=== PATIENT | male | born 1945 | race Caucasian/White ===

== ENCOUNTER 2017-09-15 05:10 | Observation (INO) ==
[2017-09-15] MEDS ORDERED: DIPH/TET/ACEL PERT BOOSTER VACCINE 0.5 ML VIAL IM ONE ×2 (05:25→05:43)
[2017-09-15] MEDS ORDERED: MORPHINE 2 MG/1 ML SYRINGE IV STA (05:25)
[2017-09-15] MEDS ORDERED: ONDANSETRON 4 MG/2 ML VIAL IV STA (05:26)
[2017-09-15] MEDS: ALBUTEROL 2.5 MG/3 ML NEB RESP TX SCH ×2 (05:30→05:50)
[2017-09-15] MEDS ORDERED: ONDANSETRON 4 MG/2 ML VIAL ONE (05:42)
[2017-09-15 05:43] LABS: Basophils # 0.1 10*3/uL (0.0-0.2); Basophils % 1.8 % (0.0-0.8); Eosinophils # 0.2 10*3/uL (0.0-0.87); Eosinophils % 4.4 % (0.00-10.9); Hemoglobin 12.2 GM/DL (14.0-18.0); Immature Granulocytes % 0.2 %; Immature Granulocytes Absolute 0.01 #; Lymphocytes # 1.6 10*3/uL (1.4-4.0); Lymphocytes % 36.2 % (21.2-54.2); Mean Corpuscular HGB Conc 32.1 GM/DL (32-36); Mean Corpuscular Hemoglobin 28 PG (27-34); Mean Platelet Volume 11.4 FL (9.6-12.0); Monocytes # 0.4 10*3/uL (0.11-0.8); Monocytes % 9.3 % (1.7-12.7); Neutrophils # 2.2 10*3/uL (1.4-7.4); Neutrophils % 48.1 % (38.7-73.9); Platelet Count 174 T/CUMM (130-400); Red Blood Count 4.42 MC/CUMM (3.8-5.5); Red Cell Distribution Width 14.9 % (9.3-17.3); White Blood Count 4.5 T/CUMM (4-12)
[2017-09-15] MEDS ORDERED: MORPHINE 2 MG/1 ML SYRINGE ONE ×2 (05:43)
[2017-09-15 05:58] LABS: Allen Test Positive
[2017-09-15 06:01] LABS: ABG Base Excess 4.9 MMOL/L (-2.5-2.5); ABG Oxygen Saturation 98.1 % (95-100); ABG PCO2 46.6 MM HG (35-48); ABG PH 7.427 (7.35-7.45); ABG PO2 111.5 MM HG (80-95); ABG TCO2 31.5 MMOL/L (23-27)
[2017-09-15 06:11] LABS: Albumin 3.6 G/DL (3.4-5.0); Bilirubin,Total 0.4 MG/DL (0.2-1.0); Calcium 8.7 MG/DL (8.5-10.1); Osmolality,Calculated 275.4 MOS/KG (273-304); Potassium 2.8 MMOL/L (3.5-5.1); Total Protein 7.1 G/DL (6.4-8.3)
[2017-09-15] MEDS ORDERED: ALBUTEROL 2.5 MG/3 ML NEB RESP TX STA (06:30)
[2017-09-15] MEDS ORDERED: SODIUM CHLORIDE 0.9% 1,000 ML IV STA (06:30)
[2017-09-15] MEDS ORDERED: POTASSIUM CHLORIDE 20 MEQ TABLET PO STA (06:31)
[2017-09-15] MEDS ORDERED: POTASSIUM CHLORIDE 20 MEQ TABLET PO ONE (06:35)
[2017-09-15] MEDS ORDERED: ALBUTEROL 2.5 MG/3 ML NEB RESP TX ONE (06:41)
[2017-09-15] MEDS ORDERED: SILVER SULFADIAZINE 1% CREAM 25 GM TUBE TOP ONE (07:02)
[2017-09-15] MEDS ORDERED: ACETAMINOPHEN 325 MG TABLET PO PRN (09:03)
[2017-09-15] MEDS ORDERED: ONDANSETRON 4 MG/2 ML VIAL IV PRN (09:03)
[2017-09-15] MEDS ORDERED: INFLUENZA VIRUS VACCINE 0.5 ML SYRINGE IM ONE (10:08)
[2017-09-15] MEDS: BECLOMETHASONE 80 MCG/PUFF INHALER 8.7 GM INH SCH ×2 (11:49→22:16)
[2017-09-15] MEDS: LACTATED RINGERS 1,000 ML IV SCH ×2 (11:58→19:35)
[2017-09-15] MEDS: PANTOPRAZOLE 40 MG TABLET PO SCH (12:01)
[2017-09-15] MEDS ORDERED: ALBUTEROL/IPRATROPIUM 3 ML NEB RESP TX PRN (12:08)
[2017-09-15] MEDS ORDERED: ALBUTEROL 2.5 MG/3 ML NEB RESP TX PRN (12:30)
[2017-09-15] MEDS: POTASSIUM CHLORIDE RIDER 10 MEQ in PREMIX 1 EACH IV PRN ×5 (13:13→21:33)
[2017-09-15 16:48] LABS: Barbiturates Screen,Urine Negative (Negative); Benzodiazepines Screen,Urine Negative (Negative); Cannabinoid Screen,Urine Negative (Negative); Opiate Screen,Urine Positive (Negative); Phencyclidine Screen,Urine Negative (Negative)
[2017-09-16] MEDS: LACTATED RINGERS 1,000 ML IV SCH (04:19)
[2017-09-16 05:42] LABS: Calcium 7.9 MG/DL (8.5-10.1); Osmolality,Calculated 277.3 MOS/KG (273-304); Potassium 3.8 MMOL/L (3.5-5.1)
[2017-09-16 08:25] VITALS: BP 137/89
[2017-09-16] MEDS ORDERED: SILVER SULFADIAZINE 1% CREAM 25 GM TUBE TOP SCH (09:00)
[2017-09-16] MEDS: BECLOMETHASONE 80 MCG/PUFF INHALER 8.7 GM INH SCH (09:29)
[2017-09-16] MEDS: PANTOPRAZOLE 40 MG TABLET PO SCH (09:50)
== END 2017-09-16 11:45 | disposition home or self-care (01) ==
LOC: EDUNIT# → EDBD → N.EDINP 05:10 → N.ED 05:10 → SUATTDRO 06:36 → N.3E 06:46
PROVIDERS: ADMIT Surgery

== ENCOUNTER 2017-09-25 15:20 | Inpatient (IN) ==
[2017-09-25] MEDS ORDERED: SODIUM CHLORIDE 0.9% 1,000 ML IV STA ×2 (16:32→17:40)
[2017-09-25] MEDS ORDERED: ONDANSETRON ODT 4 MG TABLET PO STA (16:32)
[2017-09-25] MEDS ORDERED: METOCLOPRAMIDE 10 MG/2 ML VIAL IV STA (16:32)
[2017-09-25] MEDS ORDERED: LOPERAMIDE 2 MG CAPSULE PO STA (16:32)
[2017-09-25] MEDS ORDERED: ALBUTEROL/IPRATROPIUM 3 ML NEB RESP TX STA (16:41)
[2017-09-25 17:13] LABS: Basophils # 0.1 10*3/uL (0.0-0.2); Basophils % 0.5 % (0.0-0.8); Hematocrit 37.6 VOL% (42.0-52.0); Hemoglobin 12.3 GM/DL (14.0-18.0); Immature Granulocytes % 0.4 %; Immature Granulocytes Absolute 0.06 #; Lymphocytes # 1.3 10*3/uL (1.4-4.0); Mean Corpuscular HGB Conc 32.7 GM/DL (32-36); Mean Corpuscular Hemoglobin 27 PG (27-34); Mean Corpuscular Volume 83.6 FL (87-102); Mean Platelet Volume 11.1 FL (9.6-12.0); Monocytes % 6.1 % (1.7-12.7); Platelet Count 206 T/CUMM (130-400); Red Cell Distribution Width 14.7 % (9.3-17.3); White Blood Count 16.5 T/CUMM (4-12)
[2017-09-25 17:31] LABS: Albumin 3.5 G/DL (3.4-5.0); Bilirubin,Total 0.9 MG/DL (0.2-1.0); Calcium 8.6 MG/DL (8.5-10.1); Osmolality,Calculated 270.7 MOS/KG (273-304); Potassium 3.5 MMOL/L (3.5-5.1); Total Protein 7.5 G/DL (6.4-8.3)
[2017-09-25 17:34] LABS: Lactic Acid 3.5 MMOL/L (0.4-2.0)
[2017-09-25] MEDS ORDERED: LEVOFLOXACIN INJ 750 MG in PREMIX 1 EACH IV STA (17:39)
[2017-09-25] MEDS ORDERED: ONDANSETRON ODT 4 MG TABLET PO ONE (17:54)
[2017-09-25] MEDS ORDERED: METOCLOPRAMIDE 10 MG/2 ML VIAL ONE (17:54)
[2017-09-25] MEDS ORDERED: LEVOFLOXACIN INJ 150 ML IV ONE (17:54)
[2017-09-25] MEDS ORDERED: LOPERAMIDE 2 MG CAPSULE ONE (17:54)
[2017-09-25 19:11] LABS: Apearance,Urine CLEAR (Clear); Bacteria,Urine Occasional /HPF (Few); Bilirubin,Urine Negative (Negative); Blood, Urine Small mg/dL (Negative); Glucose,Urine (UA) Negative (Negative); Ketones,Urine Negative (Negative); Nitrite,Urine Negative (Negative); Protein,Urine Negative; RBC,Urine 1 /HPF (0-4); Urine Color Straw (Yellow); Urine Specific Gravity 1.002 (1.001-1.035); Urine Urobilinogen < 2.0 EU/DL (0.2-1.0); WBC,Urine 11 /HPF (0-6)
[2017-09-25] MEDS ORDERED: ONDANSETRON 4 MG/2 ML VIAL IV PRN (23:42)
[2017-09-25] MEDS ORDERED: ACETAMINOPHEN 325 MG TABLET PO PRN (23:42)
[2017-09-26] MEDS: ENOXAPARIN 40 MG/0.4 ML SYRINGE SUBCUT SCH (00:35)
[2017-09-26] MEDS: SODIUM CHLORIDE 0.9% 1,000 ML IV SCH ×2 (00:36→17:23)
[2017-09-26 05:50] LABS: Basophils % 0.3 % (0.0-0.8); Eosinophils % 0.3 % (0.00-10.9); Hemoglobin 11.4 GM/DL (14.0-18.0); Immature Granulocytes % 0.6 %; Immature Granulocytes Absolute 0.07 #; Lymphocytes # 1.1 10*3/uL (1.4-4.0); Lymphocytes % 9.4 % (21.2-54.2); Mean Corpuscular HGB Conc 32.6 GM/DL (32-36); Mean Corpuscular Hemoglobin 28 PG (27-34); Mean Corpuscular Volume 84.3 FL (87-102); Mean Platelet Volume 11.3 FL (9.6-12.0); Monocytes # 0.8 10*3/uL (0.11-0.8); Monocytes % 7.1 % (1.7-12.7); Neutrophils # 9.5 10*3/uL (1.4-7.4); Neutrophils % 82.3 % (38.7-73.9); Platelet Count 185 T/CUMM (130-400); Red Blood Count 4.15 MC/CUMM (3.8-5.5); Red Cell Distribution Width 14.6 % (9.3-17.3); White Blood Count 11.5 T/CUMM (4-12)
[2017-09-26 06:08] LABS: Calcium 7.7 MG/DL (8.5-10.1); Magnesium 2.2 MG/DL (1.8-2.4); Osmolality,Calculated 275.5 MOS/KG (273-304); Potassium 3.6 MMOL/L (3.5-5.1)
[2017-09-26] MEDS ORDERED: ZINC OXIDE PASTE 113 GM TUBE TOP PRN (08:36)
[2017-09-26] MEDS ORDERED: cefTRIAXone 1,000 MG in SYRINGE 1 EACH IV ONE (08:49)
[2017-09-26] MEDS ORDERED: LORazepam 2 MG/1 ML VIAL IV PRN (09:43)
[2017-09-26] MEDS: LEVOFLOXACIN INJ 500 MG in PREMIX 1 EACH IV SCH (10:14)
[2017-09-26] MEDS: THIAMINE INJ 100 MG, FOLIC ACID INJ 1 MG, MULTIVITAMIN INJ 10 ML in SODIUM CHLORIDE 0.9... IV SCH (16:27)
[2017-09-26] MEDS: chlordiazePOXIDE 10 MG CAPSULE PO SCH ×2 (16:27→21:01)
[2017-09-26] MEDS ORDERED: PROPOFOL 200 MG/20 ML VIAL IV ONE (17:29)
[2017-09-26] MEDS ORDERED: MIDAZOLAM 2 MG/2 ML VIAL ONE (17:29)
[2017-09-26] MEDS ORDERED: fentaNYL 100 MCG/2 ML VIAL ONE (17:30)
[2017-09-26] MEDS ORDERED: SODIUM CHLORIDE 0.9% 250 ML IV ONE (17:30)
[2017-09-26] MEDS: cefTRIAXone 1,000 MG in SYRINGE 1 EACH IV SCH (18:20)
[2017-09-26] MEDS: ALBUTEROL/IPRATROPIUM 3 ML NEB RESP TX SCH (19:57)
[2017-09-27] MEDS: ENOXAPARIN 40 MG/0.4 ML SYRINGE SUBCUT SCH (02:26)
[2017-09-27] MEDS: SODIUM CHLORIDE 0.9% 1,000 ML IV SCH ×3 (02:31→17:41)
[2017-09-27] MEDS: ALBUTEROL/IPRATROPIUM 3 ML NEB RESP TX SCH ×2 (07:07→13:22)
[2017-09-27] MEDS ORDERED: ALBUTEROL 2.5 MG/3 ML NEB RESP TX ONE (08:43)
[2017-09-27] MEDS ORDERED: methylPREDNISolone SOD SUC 125 MG/2 ML VIAL IV ONE (08:46)
[2017-09-27] MEDS: chlordiazePOXIDE 10 MG CAPSULE PO SCH ×2 (08:52→15:43)
[2017-09-27] MEDS: LEVOFLOXACIN INJ 500 MG in PREMIX 1 EACH IV SCH (08:52)
[2017-09-27] MEDS: THIAMINE INJ 100 MG, FOLIC ACID INJ 1 MG, MULTIVITAMIN INJ 10 ML in SODIUM CHLORIDE 0.9... IV SCH (11:33)
[2017-09-27 16:09] VITALS: BP 119/68
[2017-09-27] MEDS: cefTRIAXone 1,000 MG in SYRINGE 1 EACH IV SCH (17:41)
== END 2017-09-27 18:18 | disposition home health service (06) | DRG 693 ==
LOC: EDUNIT# → EDBD → N.ED 15:20 → SUATTDRO 20:44 → N.EDINP 20:44 → N.5E 23:42
PROVIDERS: ADMIT Internal Medicine; ATTEND Internal Medicine

== ENCOUNTER 2018-10-31 19:26 | Inpatient (IN) ==
[2018-10-31] MEDS ORDERED: ALBUTEROL/IPRATROPIUM 3 ML NEB RESP TX STA (19:31)
[2018-10-31] MEDS ORDERED: methylPREDNISolone SOD SUC 125 MG/2 ML VIAL IV STA (19:31)
[2018-10-31] MEDS: ALBUTEROL 2.5 MG/3 ML NEB RESP TX SCH ×3 (20:01→20:40)
[2018-10-31 20:13] LABS: Hematocrit 42.3 VOL% (42.0-52.0); Hemoglobin 13.1 GM/DL (14.0-18.0); Immature Granulocytes % 0.6 %; Immature Granulocytes Absolute 0.04 #; Lymphocytes # 0.7 10*3/uL (1.4-4.0); Lymphocytes % 9.6 % (21.2-54.2); Mean Corpuscular Hemoglobin 27 PG (27-34); Mean Corpuscular Volume 85.8 FL (87-102); Mean Platelet Volume 11.4 FL (9.6-12.0); Monocytes # 0.6 10*3/uL (0.11-0.8); Monocytes % 7.7 % (1.7-12.7); Neutrophils % 82.1 % (38.7-73.9); Platelet Count 127 T/CUMM (130-400); Red Blood Count 4.93 MC/CUMM (3.8-5.5); Red Cell Distribution Width 13.8 % (9.3-17.3); White Blood Count 7.3 T/CUMM (4-12)
[2018-10-31 20:36] LABS: Albumin 3.4 G/DL (3.4-5.0); Bilirubin,Total 0.5 MG/DL (0.2-1.0); Calcium 8.5 MG/DL (8.5-10.1); Osmolality,Calculated 270.2 MOS/KG (273-304); Potassium 3.5 MMOL/L (3.5-5.1); Total Protein 7.4 G/DL (6.4-8.3)
[2018-10-31] MEDS ORDERED: SODIUM CHLORIDE 0.9% 1,000 ML IV STA (20:52)
[2018-10-31 21:14] LABS: ABG Base Excess 6.2 MMOL/L (-2.5-2.5); ABG HCO3 30.1 MMOL/L (20-26); ABG Oxygen Saturation 99.6 % (95-100); ABG PCO2 59.9 MM HG (35-48); ABG PH 7.361 (7.35-7.45); ABG TCO2 29.5 MMOL/L (23-27); Allen Test Positive
[2018-10-31] MEDS ORDERED: BISACODYL 5 MG TABLET PO PRN (23:36)
[2018-10-31] MEDS ORDERED: ONDANSETRON 4 MG/2 ML VIAL IV PRN (23:36)
[2018-10-31] MEDS ORDERED: ACETAMINOPHEN 325 MG TABLET PO PRN (23:36)
[2018-10-31] MEDS ORDERED: ALBUTEROL 2.5 MG/3 ML NEB RESP TX PRN (23:36)
[2018-11-01] MEDS: ALBUTEROL/IPRATROPIUM 3 ML NEB RESP TX SCH ×4 (00:43→20:29)
[2018-11-01] MEDS: CEFEPIME 1,000 MG in SYRINGE 1 EACH IV SCH ×3 (01:41→23:46)
[2018-11-01] MEDS: methylPREDNISolone SOD SUC 40 MG/1 ML VIAL IV SCH ×4 (01:41→23:44)
[2018-11-01 05:56] LABS: Basophils % 0.2 % (0.0-0.8); Eosinophils % 0.2 % (0.00-10.9); Hemoglobin 12.7 GM/DL (14.0-18.0); Immature Granulocytes % 0.7 %; Immature Granulocytes Absolute 0.04 #; Lymphocytes # 0.5 10*3/uL (1.4-4.0); Lymphocytes % 8.3 % (21.2-54.2); Mean Corpuscular Hemoglobin 27 PG (27-34); Mean Corpuscular Volume 85.4 FL (87-102); Monocytes # 0.4 10*3/uL (0.11-0.8); Monocytes % 6.2 % (1.7-12.7); Neutrophils # 4.8 10*3/uL (1.4-7.4); Neutrophils % 84.4 % (38.7-73.9); Platelet Count 121 T/CUMM (130-400); White Blood Count 5.7 T/CUMM (4-12)
[2018-11-01 06:04] LABS: Calcium 8.4 MG/DL (8.5-10.1); Osmolality,Calculated 269.2 MOS/KG (273-304); Potassium 3.8 MMOL/L (3.5-5.1)
[2018-11-01] MEDS ORDERED: PANTOPRAZOLE 40 MG TABLET PO SCH (09:00)
[2018-11-01] MEDS: PANTOPRAZOLE 40 MG TABLET PO SCH (10:18)
[2018-11-01] MEDS: ENOXAPARIN 40 MG/0.4 ML SYRINGE SUBCUT SCH (10:18)
[2018-11-01] MEDS ORDERED: LORazepam 1 MG TABLET PO PRN (11:28)
[2018-11-01] MEDS: LORazepam 1 MG TABLET PO SCH ×2 (12:59→20:37)
[2018-11-02] MEDS: ALBUTEROL/IPRATROPIUM 3 ML NEB RESP TX SCH ×3 (01:13→14:25)
[2018-11-02 04:49] LABS: Hematocrit 41.1 VOL% (42.0-52.0); Hemoglobin 12.9 GM/DL (14.0-18.0); Immature Granulocytes % 0.5 %; Immature Granulocytes Absolute 0.02 #; Lymphocytes # 0.7 10*3/uL (1.4-4.0); Lymphocytes % 15.8 % (21.2-54.2); Mean Corpuscular HGB Conc 31.4 GM/DL (32-36); Mean Corpuscular Hemoglobin 27 PG (27-34); Mean Corpuscular Volume 85.3 FL (87-102); Mean Platelet Volume 12.4 FL (9.6-12.0); Monocytes # 0.3 10*3/uL (0.11-0.8); Monocytes % 7.1 % (1.7-12.7); Neutrophils # 3.2 10*3/uL (1.4-7.4); Neutrophils % 76.6 % (38.7-73.9); Platelet Count 126 T/CUMM (130-400); Red Blood Count 4.82 MC/CUMM (3.8-5.5); Red Cell Distribution Width 13.9 % (9.3-17.3); White Blood Count 4.1 T/CUMM (4-12)
[2018-11-02 05:13] LABS: Calcium 8.6 MG/DL (8.5-10.1); Osmolality,Calculated 272.1 MOS/KG (273-304)
[2018-11-02 05:19] LABS: Lymphocytes 20 % (20-55); Platelet Estimate Decreased; Polychromasia Few; Segmented Neutrophils 79 % (50-85); Total Cells Counted 100
[2018-11-02] MEDS: PANTOPRAZOLE 40 MG TABLET PO SCH (08:15)
[2018-11-02] MEDS: ENOXAPARIN 40 MG/0.4 ML SYRINGE SUBCUT SCH (08:15)
[2018-11-02] MEDS: methylPREDNISolone SOD SUC 40 MG/1 ML VIAL IV SCH ×2 (08:15→16:41)
[2018-11-02] MEDS: LORazepam 1 MG TABLET PO SCH (08:16)
[2018-11-02] MEDS: CEFEPIME 1,000 MG in SYRINGE 1 EACH IV SCH (11:12)
[2018-11-02 12:14] VITALS: BP 116/73
== END 2018-11-02 16:53 | disposition home health service (06) | DRG 189 ==
LOC: EDBD → EDUNIT# → N.ED 19:26 → SUATTDRO 21:37 → N.ICU 21:37 → N.4E 11-01 19:38
PROVIDERS: ADMIT Internal Medicine; ATTEND Internal Medicine

== ENCOUNTER 2019-02-28 00:13 | Inpatient (IN) ==
[2019-02-28] MEDS ORDERED: ALBUTEROL/IPRATROPIUM 3 ML NEB RESP TX STA (00:17)
[2019-02-28] MEDS ORDERED: methylPREDNISolone SOD SUC 125 MG/2 ML VIAL IV STA (00:17)
[2019-02-28] MEDS ORDERED: SODIUM CHLORIDE 0.9% 100 ML IV ONE (01:18)
[2019-02-28] MEDS ORDERED: cefTRIAXone 1,000 MG VIAL ONE (01:18)
[2019-02-28] MEDS ORDERED: ACETAMINOPHEN 325 MG TABLET ONE (03:21)
[2019-02-28 03:24] LABS: Albumin 3.3 G/DL (3.4-5.0); Bilirubin,Total 0.4 MG/DL (0.2-1.0); Calcium 8.4 MG/DL (8.5-10.1); Osmolality,Calculated 277.5 MOS/KG (273-304); Total Protein 7.1 G/DL (6.4-8.3)
[2019-02-28] MEDS ORDERED: ALBUTEROL 2.5 MG/3 ML NEB RESP TX PRN (04:54)
[2019-02-28] MEDS ORDERED: DOCUSATE SODIUM 100 MG CAPSULE PO PRN (05:00)
[2019-02-28] MEDS ORDERED: ONDANSETRON 4 MG/2 ML VIAL IV PRN (05:00)
[2019-02-28 05:10] LABS: Basophils % 0.1 % (0.0-0.8); Hematocrit 40.1 VOL% (42.0-52.0); Hemoglobin 12.3 GM/DL (14.0-18.0); Immature Granulocytes % 0.3 %; Immature Granulocytes Absolute 0.04 #; Lymphocytes # 0.4 10*3/uL (1.4-4.0); Lymphocytes % 3.5 % (21.2-54.2); Mean Corpuscular HGB Conc 30.7 GM/DL (32-36); Mean Corpuscular Volume 89.1 FL (87-102); Mean Platelet Volume 11.6 FL (9.6-12.0); Neutrophils % 87.1 % (38.7-73.9); Platelet Count 169 T/CUMM (130-400); Red Cell Distribution Width 13.8 % (9.3-17.3); White Blood Count 12.3 T/CUMM (4-12)
[2019-02-28] MEDS ORDERED: MAGNESIUM SULF RIDER 2 GM in PREMIX 1 EACH IV PRN (05:23)
[2019-02-28] MEDS ORDERED: MAGNESIUM SULF RIDER 4 GM in PREMIX 1 EACH IV PRN (05:23)
[2019-02-28 06:12] LABS: VBG Base Excess -11.7 MEQ/L (0-4); VBG HCO3 14.9 MEQ/L (24-28); VBG PCO2 14.6 MMHG (41-51); VBG PH 7.501
[2019-02-28 06:25] LABS: Lymphocytes 5 % (20-55); Platelet Estimate Normal; Segmented Neutrophils 86 % (50-85); Total Cells Counted 100
[2019-02-28] MEDS ORDERED: POTASSIUM CHLORIDE 20 MEQ TABLET PO ONE (06:53)
[2019-02-28] MEDS: AZITHROMYCIN INJ 500 MG in SODIUM CHLORIDE 0.9% 250 ML IV SCH (06:54)
[2019-02-28] MEDS: ALBUTEROL/IPRATROPIUM 3 ML NEB RESP TX SCH ×3 (07:57→19:03)
[2019-02-28] MEDS: POTASSIUM CHLORIDE 20 MEQ TABLET PO PRN ×4 (08:56→16:30)
[2019-02-28] MEDS: ENOXAPARIN 40 MG/0.4 ML SYRINGE SUBCUT SCH (08:56)
[2019-02-28] MEDS ORDERED: NON-FORMULARY MEDICATION (Tiotropium Bromide [Spiriva Respimat] 2 PUFF) INH SCH (09:00)
[2019-02-28] MEDS: ACETAMINOPHEN 325 MG TABLET PO PRN (21:21)
[2019-02-28] MEDS: methylPREDNISolone SOD SUC 40 MG/1 ML VIAL IV SCH (21:22)
[2019-03-01] MEDS: ALBUTEROL/IPRATROPIUM 3 ML NEB RESP TX SCH ×4 (01:46→19:27)
[2019-03-01 04:38] LABS: Basophils % 0.2 % (0.0-0.8); Hematocrit 39.9 VOL% (42.0-52.0); Immature Granulocytes % 0.6 %; Immature Granulocytes Absolute 0.04 #; Lymphocytes # 0.3 10*3/uL (1.4-4.0); Mean Corpuscular HGB Conc 30.1 GM/DL (32-36); Mean Corpuscular Volume 90.3 FL (87-102); Mean Platelet Volume 11.8 FL (9.6-12.0); Monocytes % 5.4 % (1.7-12.7); Neutrophils % 88.8 % (38.7-73.9); Platelet Count 175 T/CUMM (130-400); Red Blood Count 4.42 MC/CUMM (3.8-5.5); Red Cell Distribution Width 13.9 % (9.3-17.3); White Blood Count 6.5 T/CUMM (4-12)
[2019-03-01 06:19] LABS: Calcium 8.9 MG/DL (8.5-10.1); Osmolality,Calculated 280.5 MOS/KG (273-304)
[2019-03-01] MEDS: AZITHROMYCIN INJ 500 MG in SODIUM CHLORIDE 0.9% 250 ML IV SCH (08:55)
[2019-03-01] MEDS: ENOXAPARIN 40 MG/0.4 ML SYRINGE SUBCUT SCH (08:56)
[2019-03-01] MEDS: cefTRIAXone 1,000 MG in SYRINGE 1 EACH IV SCH (08:57)
[2019-03-01] MEDS: methylPREDNISolone SOD SUC 40 MG/1 ML VIAL IV SCH ×2 (09:00→20:31)
[2019-03-02] MEDS: ALBUTEROL/IPRATROPIUM 3 ML NEB RESP TX SCH ×4 (00:47→19:06)
[2019-03-02] MEDS: methylPREDNISolone SOD SUC 40 MG/1 ML VIAL IV SCH ×2 (09:23→21:01)
[2019-03-02] MEDS: AZITHROMYCIN INJ 500 MG in SODIUM CHLORIDE 0.9% 250 ML IV SCH (09:23)
[2019-03-02] MEDS: cefTRIAXone 1,000 MG in SYRINGE 1 EACH IV SCH (09:24)
[2019-03-02] MEDS: ENOXAPARIN 40 MG/0.4 ML SYRINGE SUBCUT SCH (09:24)
[2019-03-03] MEDS: ALBUTEROL/IPRATROPIUM 3 ML NEB RESP TX SCH ×4 (01:07→19:35)
[2019-03-03] MEDS: ACETAMINOPHEN 325 MG TABLET PO PRN (04:44)
[2019-03-03] MEDS: AZITHROMYCIN 250 MG TABLET PO SCH (09:30)
[2019-03-03] MEDS: cefTRIAXone 1,000 MG in SYRINGE 1 EACH IV SCH (09:30)
[2019-03-03] MEDS: ENOXAPARIN 40 MG/0.4 ML SYRINGE SUBCUT SCH (09:30)
[2019-03-03] MEDS: methylPREDNISolone SOD SUC 40 MG/1 ML VIAL IV SCH ×2 (09:30→21:22)
[2019-03-04] MEDS: ALBUTEROL/IPRATROPIUM 3 ML NEB RESP TX SCH ×4 (02:47→19:22)
[2019-03-04] MEDS: ENOXAPARIN 40 MG/0.4 ML SYRINGE SUBCUT SCH (09:33)
[2019-03-04] MEDS: AZITHROMYCIN 250 MG TABLET PO SCH (09:33)
[2019-03-04] MEDS: cefTRIAXone 1,000 MG in SYRINGE 1 EACH IV SCH (09:33)
[2019-03-04] MEDS: methylPREDNISolone SOD SUC 40 MG/1 ML VIAL IV SCH ×2 (09:34→20:11)
[2019-03-05] MEDS: ALBUTEROL/IPRATROPIUM 3 ML NEB RESP TX SCH ×4 (01:10→19:00)
[2019-03-05] MEDS: ENOXAPARIN 40 MG/0.4 ML SYRINGE SUBCUT SCH (09:48)
[2019-03-05] MEDS: methylPREDNISolone SOD SUC 40 MG/1 ML VIAL IV SCH ×2 (09:48→20:48)
[2019-03-05] MEDS: cefTRIAXone 1,000 MG in SYRINGE 1 EACH IV SCH (09:49)
[2019-03-05] MEDS: ACETAMINOPHEN 325 MG TABLET PO PRN (09:49)
[2019-03-05 11:14] LABS: Basophils # 0.1 10*3/uL (0.0-0.2); Basophils % 0.3 % (0.0-0.8); Eosinophils # 0.1 10*3/uL (0.0-0.87); Eosinophils % 0.4 % (0.00-10.9); Hematocrit 48.9 VOL% (42.0-52.0); Hemoglobin 14.8 GM/DL (14.0-18.0); Immature Granulocytes % 2.1 %; Immature Granulocytes Absolute 0.43 #; Lymphocytes # 1.7 10*3/uL (1.4-4.0); Lymphocytes % 8.2 % (21.2-54.2); Mean Corpuscular HGB Conc 30.3 GM/DL (32-36); Mean Corpuscular Volume 89.6 FL (87-102); Mean Platelet Volume 11.5 FL (9.6-12.0); Monocytes % 6.5 % (1.7-12.7); Neutrophils % 82.5 % (38.7-73.9); Platelet Count 259 T/CUMM (130-400); Red Blood Count 5.46 MC/CUMM (3.8-5.5); Red Cell Distribution Width 13.8 % (9.3-17.3); White Blood Count 20.8 T/CUMM (4-12)
[2019-03-05 11:18] LABS: Calcium 8.9 MG/DL (8.5-10.1); Osmolality,Calculated 277.7 MOS/KG (273-304)
[2019-03-05 11:21] LABS: Band Neutrophils 3 % (0-10); Lymphocytes 10 % (20-55); Platelet Estimate Normal; Segmented Neutrophils 82 % (50-85); Total Cells Counted 100
[2019-03-05 11:22] LABS: Anisocytosis 1+; Macrocytosis Slight
[2019-03-06] MEDS: ALBUTEROL/IPRATROPIUM 3 ML NEB RESP TX SCH ×3 (00:10→14:30)
[2019-03-06 05:58] LABS: Basophils % 0.3 % (0.0-0.8); Hematocrit 42.3 VOL% (42.0-52.0); Hemoglobin 12.8 GM/DL (14.0-18.0); Immature Granulocytes % 3.1 %; Immature Granulocytes Absolute 0.34 #; Lymphocytes # 0.6 10*3/uL (1.4-4.0); Lymphocytes % 5.7 % (21.2-54.2); Mean Corpuscular HGB Conc 30.3 GM/DL (32-36); Mean Corpuscular Volume 89.2 FL (87-102); Mean Platelet Volume 11.6 FL (9.6-12.0); Monocytes % 5.1 % (1.7-12.7); Neutrophils % 85.8 % (38.7-73.9); Platelet Count 227 T/CUMM (130-400); Red Blood Count 4.74 MC/CUMM (3.8-5.5); Red Cell Distribution Width 13.9 % (9.3-17.3); White Blood Count 11.1 T/CUMM (4-12)
[2019-03-06 06:08] LABS: Calcium 8.9 MG/DL (8.5-10.1); Osmolality,Calculated 276.8 MOS/KG (273-304)
[2019-03-06] MEDS: methylPREDNISolone SOD SUC 40 MG/1 ML VIAL IV SCH (09:11)
[2019-03-06] MEDS: ENOXAPARIN 40 MG/0.4 ML SYRINGE SUBCUT SCH (09:19)
[2019-03-06] MEDS: cefTRIAXone 1,000 MG in SYRINGE 1 EACH IV SCH (09:19)
[2019-03-06 11:48] VITALS: BP 117/82
== END 2019-03-06 15:19 | disposition swing bed (61) | DRG 190 ==
LOC: EDBD → EDUNIT# → N.ED 00:13 → SUATTDRO 04:52 → N.EDINP 04:52 → N.2E 05:40
PROVIDERS: ADMIT Family Medicine; ATTEND Hospitalist

== ENCOUNTER 2019-05-03 19:32 | Observation (INO) ==
[2019-05-03] MEDS ORDERED: DIPH/TET/ACEL PERT BOOSTER VACCINE 0.5 ML VIAL IM ONE (20:55)
[2019-05-03] MEDS ORDERED: THIAMINE INJ 100 MG, FOLIC ACID INJ 1 MG, MAGNESIUM SULF INJ 2 GM, MULTIVITAMIN INJ 10 ... IV STA (20:55)
[2019-05-03] MEDS ORDERED: ALBUTEROL/IPRATROPIUM 3 ML NEB RESP TX STA (21:01)
[2019-05-03] MEDS ORDERED: methylPREDNISolone SOD SUC 125 MG/2 ML VIAL IV STA (21:01)
[2019-05-03 21:16] LABS: Apearance,Urine CLEAR (Clear); Bilirubin,Urine Negative (Negative); Blood, Urine Small mg/dL (Negative); Glucose,Urine (UA) Negative (Negative); Ketones,Urine Negative (Negative); Mucus,Urine Occasional /LPF (Occasional); Nitrite,Urine Negative (Negative); Protein,Urine Negative; RBC,Urine 2 /HPF (0-4); Squamous Epithelial Cell,Urine Occasional /HPF (0-10); Urine Color Straw (Yellow); Urine Specific Gravity 1.005 (1.001-1.035); Urine Urobilinogen < 2.0 EU/DL (0.2-1.0)
[2019-05-03 21:21] LABS: Barbiturates Screen,Urine Negative (Negative); Benzodiazepines Screen,Urine Negative (Negative); Cannabinoid Screen,Urine Negative (Negative); Opiate Screen,Urine Negative (Negative); Phencyclidine Screen,Urine Negative (Negative)
[2019-05-03 21:30] LABS: Alanine Aminotransferase 18 U/L (16-61); Albumin 3.4 G/DL (3.4-5.0); Alkaline Phosphatase 88 U/L (45-117); Aspartate Amino Transferase 17 U/L (0-37); Blood Urea Nitrogen 23 MG/DL (7-18); Calcium 8.8 MG/DL (8.5-10.1); Glucose 88 MG/DL (74-106); Osmolality,Calculated 288.8 MOS/KG (273-304); Total Protein 6.8 G/DL (6.4-8.3)
[2019-05-03 21:37] LABS: Basophils # 0.1 10*3/uL (0.0-0.2); Eosinophils # 0.2 10*3/uL (0.0-0.87); Eosinophils % 3.1 % (0.00-10.9); Hematocrit 37.9 VOL% (42.0-52.0); Hemoglobin 12.1 GM/DL (14.0-18.0); Immature Granulocytes % 0.3 %; Immature Granulocytes Absolute 0.02 #; Lymphocytes # 1.4 10*3/uL (1.4-4.0); Lymphocytes % 24.2 % (21.2-54.2); Mean Corpuscular HGB Conc 31.9 GM/DL (32-36); Mean Corpuscular Volume 95.7 FL (87-102); Mean Platelet Volume 12.1 FL (9.6-12.0); Monocytes % 9.6 % (1.7-12.7); Neutrophils % 61.8 % (38.7-73.9); Platelet Count 228 T/CUMM (130-400); Red Blood Count 3.96 MC/CUMM (3.8-5.5); Red Cell Distribution Width 12.6 % (9.3-17.3); White Blood Count 5.8 T/CUMM (4-12)
[2019-05-03 21:42] LABS: INR 0.9; PT Patient Result 9.8 SECS
[2019-05-03 21:49] LABS: Troponin I < 0.015 NG/ML (0.00-0.045)
[2019-05-03] MEDS ORDERED: cefTRIAXone 1,000 MG in SODIUM CHLORIDE 0.9% 100 ML IV STA (21:58)
[2019-05-03] MEDS ORDERED: TISSUE ADHESIVE 1 EACH APPLICATOR TOP ONE (22:01)
[2019-05-04] MEDS ORDERED: MORPHINE 4 MG/1 ML VIAL IV PRN (00:20)
[2019-05-04] MEDS ORDERED: ONDANSETRON 4 MG/2 ML VIAL IV PRN (00:20)
[2019-05-04] MEDS ORDERED: diphenhydrAMINE CAP 25 MG CAPSULE PO PRN (00:20)
[2019-05-04] MEDS ORDERED: NICOTINE 21 MG/24 HR PATCH TRANSDERM PRN (00:20)
[2019-05-04] MEDS ORDERED: guaiFENesin/DM ER 600-30 MG TABLET PO PRN (00:20)
[2019-05-04] MEDS ORDERED: ACETAMINOPHEN 325 MG TABLET PO PRN (00:20)
[2019-05-04] MEDS: ALBUTEROL/IPRATROPIUM 3 ML NEB RESP TX SCH ×4 (01:00→19:18)
[2019-05-04] MEDS: AZITHROMYCIN INJ 500 MG in SODIUM CHLORIDE 0.9% 250 ML IV SCH (02:25)
[2019-05-04] MEDS: POTASSIUM CHLORIDE 20 MEQ TABLET PO PRN ×2 (02:26→04:35)
[2019-05-04] MEDS: PANTOPRAZOLE 40 MG TABLET PO SCH (09:14)
[2019-05-04] MEDS: cefTRIAXone 1,000 MG in SYRINGE 1 EACH IV SCH ×2 (09:14→21:24)
[2019-05-04] MEDS: chlordiazePOXIDE 25 MG CAPSULE PO PRN ×2 (09:22→15:50)
[2019-05-04] MEDS: SODIUM CHLORIDE 0.9% 1,000 ML IV SCH ×2 (10:58→23:48)
[2019-05-05] MEDS: ALBUTEROL/IPRATROPIUM 3 ML NEB RESP TX SCH ×2 (02:33→07:20)
[2019-05-05] MEDS: AZITHROMYCIN INJ 500 MG in SODIUM CHLORIDE 0.9% 250 ML IV SCH (02:33)
[2019-05-05 05:29] LABS: Basophils % 0.3 % (0.0-0.8); Eosinophils # 0.1 10*3/uL (0.0-0.87); Eosinophils % 0.9 % (0.00-10.9); Hematocrit 35.9 VOL% (42.0-52.0); Hemoglobin 10.9 GM/DL (14.0-18.0); Immature Granulocytes % 0.7 %; Immature Granulocytes Absolute 0.04 #; Lymphocytes # 1.2 10*3/uL (1.4-4.0); Lymphocytes % 20.3 % (21.2-54.2); Mean Corpuscular HGB Conc 30.4 GM/DL (32-36); Mean Corpuscular Volume 86.9 FL (87-102); Mean Platelet Volume 12.2 FL (9.6-12.0); Neutrophils % 70.8 % (38.7-73.9); Platelet Count 104 T/CUMM (130-400); Red Blood Count 4.13 MC/CUMM (3.8-5.5); Red Cell Distribution Width 17.4 % (9.3-17.3); White Blood Count 5.9 T/CUMM (4-12)
[2019-05-05 05:35] LABS: Osmolality,Calculated 282.1 MOS/KG (273-304)
[2019-05-05 08:11] VITALS: BP 104/60
[2019-05-05] MEDS: PANTOPRAZOLE 40 MG TABLET PO SCH (08:58)
[2019-05-05] MEDS: cefTRIAXone 1,000 MG in SYRINGE 1 EACH IV SCH (08:58)
[2019-05-05] MEDS ORDERED: THIAMINE 100 MG TABLET PO SCH (10:30)
[2019-05-05] MEDS ORDERED: FOLIC ACID 1 MG TABLET PO SCH (10:30)
[2019-05-05] MEDS ORDERED: MULTIVITAMIN (CENTRUM) TABLET PO SCH (10:30)
== END 2019-05-05 12:25 | disposition left against medical advice (07) ==
LOC: EDBD → EDUNIT# → N.ED 19:32 → N.EDINP 19:32 → N.5E 05-04 00:46
PROVIDERS: ADMIT Internal Medicine; ATTEND Internal Medicine

== ENCOUNTER 2019-05-15 17:58 | Observation (INO) ==
[2019-05-15] MEDS ORDERED: methylPREDNISolone SOD SUC 125 MG/2 ML VIAL IV STA (18:30)
[2019-05-15] MEDS ORDERED: ALBUTEROL/IPRATROPIUM 3 ML NEB RESP TX STA (18:30)
[2019-05-15] MEDS ORDERED: THIAMINE INJ 100 MG, FOLIC ACID INJ 1 MG, MAGNESIUM SULF INJ 2 GM, MULTIVITAMIN INJ 10 ... IV ONE (18:30)
[2019-05-15 19:08] LABS: Basophils # 0.1 10*3/uL (0.0-0.2); Basophils % 0.9 % (0.0-0.8); Eosinophils # 0.1 10*3/uL (0.0-0.87); Eosinophils % 1.6 % (0.00-10.9); Hemoglobin 12.1 GM/DL (14.0-18.0); Immature Granulocytes % 0.6 %; Immature Granulocytes Absolute 0.04 #; Lymphocytes % 14.6 % (21.2-54.2); Mean Corpuscular HGB Conc 30.3 GM/DL (32-36); Mean Corpuscular Volume 86.8 FL (87-102); Mean Platelet Volume 10.9 FL (9.6-12.0); Monocytes % 9.2 % (1.7-12.7); Neutrophils % 73.1 % (38.7-73.9); Platelet Count 163 T/CUMM (130-400); Red Blood Count 4.61 MC/CUMM (3.8-5.5); Red Cell Distribution Width 17.8 % (9.3-17.3)
[2019-05-15 19:18] LABS: Apearance,Urine CLEAR (Clear); Bilirubin,Urine Negative (Negative); Blood, Urine Small mg/dL (Negative); Glucose,Urine (UA) Negative (Negative); Ketones,Urine Negative (Negative); Nitrite,Urine Negative (Negative); Protein,Urine Negative; RBC,Urine 1 /HPF (0-4); Squamous Epithelial Cell,Urine Occasional /HPF (0-10); Urine Color Colorless (Yellow); Urine Specific Gravity 1.002 (1.001-1.035); Urine Urobilinogen < 2.0 EU/DL (0.2-1.0); WBC,Urine <1 /HPF (0-6)
[2019-05-15 19:19] LABS: INR 0.9
[2019-05-15 19:23] LABS: Barbiturates Screen,Urine Negative (Negative); Benzodiazepines Screen,Urine Negative (Negative); Cannabinoid Screen,Urine Negative (Negative); Opiate Screen,Urine Negative (Negative); Phencyclidine Screen,Urine Negative (Negative)
[2019-05-15 19:33] LABS: Albumin 3.4 G/DL (3.4-5.0); Bilirubin,Total 0.5 MG/DL (0.2-1.0); Osmolality,Calculated 279.3 MOS/KG (273-304); Total Protein 6.9 G/DL (6.4-8.3)
[2019-05-15 20:29] LABS: ABG Base Excess 3.5 MMOL/L (-2.5-2.5); ABG HCO3 27.4 MMOL/L (20-26); ABG Oxygen Saturation 92.7 % (95-100); ABG PCO2 56.2 MM HG (35-48); ABG PH 7.343 (7.35-7.45); ABG PO2 75.1 MM HG (80-95); ABG TCO2 27.5 MMOL/L (23-27); Allen Test Positive
[2019-05-15 20:43] LABS: Sedimentation Rate-Westergren 32 MM/HR (0-20)
[2019-05-15] MEDS ORDERED: ONDANSETRON 4 MG/2 ML VIAL IV PRN (20:52)
[2019-05-15] MEDS ORDERED: LORazepam 0.5 MG TABLET PO PRN (20:58)
[2019-05-15] MEDS ORDERED: ENOXAPARIN 40 MG/0.4 ML SYRINGE SUBCUT SCH (21:00)
[2019-05-15] MEDS: KETOROLAC 15 MG/1 ML VIAL IV SCH (23:02)
[2019-05-15] MEDS: THIAMINE INJ 100 MG in SODIUM CHLORIDE 0.9% 1,000 ML IV SCH (23:09)
[2019-05-15] MEDS: ALBUTEROL/IPRATROPIUM 3 ML NEB RESP TX SCH (23:40)
[2019-05-16] MEDS: ALBUTEROL/IPRATROPIUM 3 ML NEB RESP TX SCH ×3 (03:32→10:56)
[2019-05-16] MEDS: methylPREDNISolone SOD SUC 40 MG/1 ML VIAL IV SCH ×2 (04:02→11:16)
[2019-05-16] MEDS: KETOROLAC 15 MG/1 ML VIAL IV SCH ×2 (04:04→11:17)
[2019-05-16 05:13] LABS: Basophils % 0.4 % (0.0-0.8); Hematocrit 34.8 VOL% (42.0-52.0); Hemoglobin 10.8 GM/DL (14.0-18.0); Immature Granulocytes % 1.2 %; Immature Granulocytes Absolute 0.03 #; Lymphocytes # 0.2 10*3/uL (1.4-4.0); Lymphocytes % 8.9 % (21.2-54.2); Mean Corpuscular Volume 86.4 FL (87-102); Mean Platelet Volume 11.2 FL (9.6-12.0); Monocytes % 0.8 % (1.7-12.7); Neutrophils % 88.7 % (38.7-73.9); Platelet Count 139 T/CUMM (130-400); Red Blood Count 4.03 MC/CUMM (3.8-5.5); Red Cell Distribution Width 17.6 % (9.3-17.3); White Blood Count 2.6 T/CUMM (4-12)
[2019-05-16 05:50] LABS: Calcium 7.6 MG/DL (8.5-10.1); Osmolality,Calculated 285.3 MOS/KG (273-304)
[2019-05-16] MEDS: THIAMINE INJ 100 MG in SODIUM CHLORIDE 0.9% 1,000 ML IV SCH (07:01)
[2019-05-16] MEDS ORDERED: PANTOPRAZOLE 40 MG TABLET PO SCH (09:00)
[2019-05-16] MEDS ORDERED: NON-FORMULARY MEDICATION (Tiotropium Bromide [Spiriva Respimat] 2 PUFF) INH SCH (09:00)
[2019-05-16] MEDS ORDERED: AZITHROMYCIN 250 MG TABLET PO SCH (09:00)
[2019-05-16] MEDS ORDERED: FOLIC ACID 1 MG TABLET PO SCH (09:00)
[2019-05-16] MEDS ORDERED: chlordiazePOXIDE 25 MG CAPSULE PO ONE (09:06)
[2019-05-16] MEDS ORDERED: LORazepam 2 MG/1 ML VIAL IV PRN (09:07)
[2019-05-16 12:25] VITALS: BP 109/71
== END 2019-05-16 15:05 | disposition home or self-care (01) ==
LOC: EDBD → EDUNIT# → N.ED 17:58 → N.EDINP 17:58 → SUPCPDRO 20:52 → N.4E 21:14
PROVIDERS: ADMIT Internal Medicine; ATTEND Internal Medicine

== ENCOUNTER 2020-07-25 09:42 | Inpatient (IN) ==
[2020-07-25] MEDS ORDERED: methylPREDNISolone SOD SUC 125 MG/2 ML VIAL IV STA (10:19)
[2020-07-25] MEDS ORDERED: ALBUTEROL/IPRATROPIUM 3 ML NEB RESP TX STA ×2 (10:19→11:50)
[2020-07-25 10:20] LABS: Basophils % 0.3 % (0.0-0.8); Eosinophils # 0.1 10*3/uL (0.0-0.87); Eosinophils % 0.5 % (0.00-10.9); Hematocrit 35.4 VOL% (42.0-52.0); Hemoglobin 10.6 GM/DL (14.0-18.0); Immature Granulocytes % 0.8 %; Immature Granulocytes Absolute 0.09 #; Lymphocytes # 0.7 10*3/uL (1.4-4.0); Lymphocytes % 6.4 % (21.2-54.2); Mean Corpuscular HGB Conc 29.9 GM/DL (32-36); Mean Corpuscular Volume 93.2 FL (87-102); Mean Platelet Volume 11.2 FL (9.6-12.0); Monocytes % 7.5 % (1.7-12.7); Neutrophils % 84.5 % (38.7-73.9); Platelet Count 158 T/CUMM (130-400); Red Cell Distribution Width 14.7 % (9.3-17.3); White Blood Count 11.6 T/CUMM (4-12)
[2020-07-25] MEDS: ENOXAPARIN 40 MG/0.4 ML SYRINGE SUBCUT SCH (10:42)
[2020-07-25 10:48] LABS: Alanine Aminotransferase 19 U/L (16-61); Albumin 2.8 G/DL (3.4-5.0); Alkaline Phosphatase 53 U/L (45-117); Aspartate Amino Transferase 25 U/L (0-37); Bilirubin,Total < 0.39 MG/DL (0.2-1.0); Blood Urea Nitrogen 17 MG/DL (7-18); Calcium 8.8 MG/DL (8.5-10.1); Estimated Glom Filtration Rate 101 ML/MIN; Glucose 94 MG/DL (74-106); Osmolality,Calculated 280.4 MOS/KG (273-304); Total Protein 6.8 G/DL (6.4-8.3)
[2020-07-25] MEDS ORDERED: PIPERACILLIN/TAZOBACTAM 3,375 MG in SODIUM CHLORIDE 0.9% 100 ML IV STA (11:14)
[2020-07-25] MEDS ORDERED: VANCOMYCIN INJ 1,000 MG in SODIUM CHLORIDE 0.9% 250 ML IV STA (11:15)
[2020-07-25 11:48] LABS: ABG Base Excess 17.3 MMOL/L (-2.5-2.5); ABG HCO3 41.2 MMOL/L (20-26); ABG Oxygen Saturation 92.8 % (95-100); ABG PH 7.364 (7.35-7.45); ABG TCO2 42.6 MMOL/L (23-27)
[2020-07-25 11:50] LABS: ABG PCO2 81.6 MM HG (35-48)
[2020-07-25] MEDS ORDERED: dilTIAZem Drip 125 MG/125 ML PREMIX IV SCH (12:30)
[2020-07-25] MEDS ORDERED: DEXTROSE 50% 25 GM/50 ML VIAL IV PRN ×2 (13:05→13:16)
[2020-07-25] MEDS ORDERED: ACETAMINOPHEN 325 MG TABLET PO PRN (13:16)
[2020-07-25] MEDS ORDERED: ONDANSETRON 4 MG/2 ML VIAL IV PRN (13:16)
[2020-07-25] MEDS ORDERED: ENOXAPARIN 60 MG/0.6 ML SYRINGE SUBCUT SCH (13:30)
[2020-07-25 13:48] LABS: VLDL CHOLESTEROL 8.8 MG/DL
[2020-07-25 13:49] LABS: Risk Ratio 2.06
[2020-07-25 13:55] LABS: Thyroid Stimulating Hormone 1.77 uIU/ml (0.358-3.74)
[2020-07-25] MEDS: ALBUTEROL/IPRATROPIUM 3 ML NEB RESP TX PRN ×2 (14:41→22:18)
[2020-07-25 15:29] LABS: ABG Base Excess 14.5 MMOL/L (-2.5-2.5); ABG HCO3 38.2 MMOL/L (20-26); ABG Oxygen Saturation 92.3 % (95-100); ABG PH 7.333 (7.35-7.45); ABG PO2 68.6 MM HG (80-95); ABG TCO2 40.3 MMOL/L (23-27)
[2020-07-25 15:30] LABS: ABG PCO2 83.1 MM HG (35-48)
[2020-07-25] MEDS ORDERED: LORazepam 1 MG TABLET PO STA (15:32)
[2020-07-25] MEDS: ALBUTEROL/IPRATROPIUM 3 ML NEB RESP TX SCH (19:25)
[2020-07-25] MEDS: PIPERACILLIN/TAZOBACTAM 3,375 MG in SODIUM CHLORIDE 0.9% 100 ML IV SCH (21:50)
[2020-07-26] MEDS: ALBUTEROL/IPRATROPIUM 3 ML NEB RESP TX SCH ×4 (00:37→22:46)
[2020-07-26] MEDS: ALBUTEROL/IPRATROPIUM 3 ML NEB RESP TX PRN (02:41)
[2020-07-26] MEDS: PIPERACILLIN/TAZOBACTAM 3,375 MG in SODIUM CHLORIDE 0.9% 100 ML IV SCH ×3 (05:15→21:18)
[2020-07-26 05:50] LABS: Basophils % 0.3 % (0.0-0.8); Hematocrit 34.1 VOL% (42.0-52.0); Immature Granulocytes Absolute 0.14 #; Lymphocytes # 0.4 10*3/uL (1.4-4.0); Mean Corpuscular HGB Conc 29.3 GM/DL (32-36); Mean Corpuscular Volume 95.3 FL (87-102); Mean Platelet Volume 11.7 FL (9.6-12.0); Monocytes % 6.2 % (1.7-12.7); Neutrophils % 85.5 % (38.7-73.9); Platelet Count 156 T/CUMM (130-400); Red Blood Count 3.58 MC/CUMM (3.8-5.5); Red Cell Distribution Width 14.4 % (9.3-17.3)
[2020-07-26 06:00] LABS: Hypochromasia 1+; Microcytosis 1+; Platelet Estimate Adequate
[2020-07-26 06:06] LABS: Calcium 8.7 MG/DL (8.5-10.1); Osmolality,Calculated 276.7 MOS/KG (273-304)
[2020-07-26] MEDS: methylPREDNISolone SOD SUC 40 MG/1 ML VIAL IV SCH ×2 (09:51→17:05)
[2020-07-26] MEDS: PANTOPRAZOLE 40 MG TABLET PO SCH (09:51)
[2020-07-26] MEDS: FUROSEMIDE 40 MG/4 ML VIAL IV SCH (11:09)
[2020-07-26] MEDS: METOPROLOL SUCCINATE XL 25 MG TABLET PO SCH (12:21)
[2020-07-26] MEDS: ENOXAPARIN 40 MG/0.4 ML SYRINGE SUBCUT SCH (12:36)
[2020-07-27] MEDS: methylPREDNISolone SOD SUC 40 MG/1 ML VIAL IV SCH ×3 (01:07→17:34)
[2020-07-27] MEDS: ALBUTEROL/IPRATROPIUM 3 ML NEB RESP TX SCH ×4 (02:24→19:07)
[2020-07-27] MEDS: PIPERACILLIN/TAZOBACTAM 3,375 MG in SODIUM CHLORIDE 0.9% 100 ML IV SCH ×3 (05:20→21:08)
[2020-07-27 06:03] LABS: Blood Urea Nitrogen 21 MG/DL (7-18); Calcium 9.3 MG/DL (8.5-10.1); Estimated Glom Filtration Rate 103 ML/MIN; Glucose 108 MG/DL (74-106); Osmolality,Calculated 278.7 MOS/KG (273-304)
[2020-07-27 06:39] LABS: Basophils % 0.3 % (0.0-0.8); Hematocrit 36.8 VOL% (42.0-52.0); Hemoglobin 10.4 GM/DL (14.0-18.0); Immature Granulocytes % 1.9 %; Immature Granulocytes Absolute 0.11 #; Lymphocytes # 0.5 10*3/uL (1.4-4.0); Mean Corpuscular HGB Conc 28.3 GM/DL (32-36); Mean Corpuscular Volume 96.8 FL (87-102); Mean Platelet Volume 11.4 FL (9.6-12.0); Monocytes % 10.1 % (1.7-12.7); Neutrophils % 79.7 % (38.7-73.9); Platelet Count 172 T/CUMM (130-400); Red Cell Distribution Width 14.3 % (9.3-17.3); White Blood Count 5.7 T/CUMM (4-12)
[2020-07-27 07:07] LABS: Hypochromasia 1+; Microcytosis 1+; Polychromasia Slight
[2020-07-27 07:08] LABS: Platelet Estimate Adequate
[2020-07-27] MEDS: METOPROLOL SUCCINATE XL 25 MG TABLET PO SCH (09:57)
[2020-07-27] MEDS: PANTOPRAZOLE 40 MG TABLET PO SCH (09:57)
[2020-07-27] MEDS: FUROSEMIDE 40 MG/4 ML VIAL IV SCH (11:00)
[2020-07-27] MEDS ORDERED: ALBUTEROL/IPRATROPIUM 3 ML NEB RESP TX ONE (11:16)
[2020-07-27] MEDS ORDERED: AMINOPHYLLINE 250 MG in SODIUM CHLORIDE 0.9% 100 ML IV ONE (12:00)
[2020-07-27] MEDS: dilTIAZem Drip 125 MG/125 ML PREMIX IV SCH (12:35)
[2020-07-27] MEDS: ENOXAPARIN 40 MG/0.4 ML SYRINGE SUBCUT SCH (14:12)
[2020-07-27] MEDS: AMINOPHYLLINE 500 MG in SODIUM CHLORIDE 0.9% 480 ML IV SCH (14:12)
[2020-07-27] MEDS: DORNASE ALFA 2.5 MG/2.5 ML VIAL RESP TX SCH (19:07)
[2020-07-27] MEDS ORDERED: METOPROLOL SUCCINATE XL 25 MG TABLET PO SCH (21:00)
[2020-07-27] MEDS ORDERED: METOPROLOL SUCCINATE XL 50 MG TABLET PO SCH (21:00)
[2020-07-27] MEDS: DILTIAZEM CD 120 MG CAPSULE PO SCH (21:09)
[2020-07-28] MEDS: methylPREDNISolone SOD SUC 40 MG/1 ML VIAL IV SCH ×3 (01:17→17:55)
[2020-07-28] MEDS: ALBUTEROL/IPRATROPIUM 3 ML NEB RESP TX SCH ×4 (01:21→19:52)
[2020-07-28] MEDS: PIPERACILLIN/TAZOBACTAM 3,375 MG in SODIUM CHLORIDE 0.9% 100 ML IV SCH ×3 (04:35→20:50)
[2020-07-28 06:01] LABS: Calcium 9.1 MG/DL (8.5-10.1)
[2020-07-28 06:15] LABS: Basophils % 0.4 % (0.0-0.8); Hematocrit 38.8 VOL% (42.0-52.0); Immature Granulocytes % 2.1 %; Immature Granulocytes Absolute 0.12 #; Lymphocytes # 0.3 10*3/uL (1.4-4.0); Lymphocytes % 4.7 % (21.2-54.2); Mean Corpuscular HGB Conc 29.9 GM/DL (32-36); Mean Corpuscular Volume 91.3 FL (87-102); Mean Platelet Volume 11.7 FL (9.6-12.0); Monocytes % 3.3 % (1.7-12.7); Neutrophils % 89.5 % (38.7-73.9); Platelet Count 188 T/CUMM (130-400); Red Blood Count 4.25 MC/CUMM (3.8-5.5); Red Cell Distribution Width 13.6 % (9.3-17.3); White Blood Count 5.7 T/CUMM (4-12)
[2020-07-28 06:20] LABS: Hemoglobin 11.6 GM/DL (14.0-18.0)
[2020-07-28 06:37] LABS: Lymphocytes 4 % (20-55); Platelet Estimate Normal; Segmented Neutrophils 92 % (50-85); Total Cells Counted 100
[2020-07-28] MEDS: DORNASE ALFA 2.5 MG/2.5 ML VIAL RESP TX SCH ×2 (07:06→20:00)
[2020-07-28 07:08] LABS: Osmolality,Calculated 279.8 MOS/KG (273-304)
[2020-07-28 08:16] LABS: ABG Base Excess 15.1 MMOL/L (-2.5-2.5); ABG HCO3 44.4 MMOL/L (20-26); ABG Oxygen Saturation 97.2 % (95-100); ABG PO2 96.2 MM HG (80-95)
[2020-07-28 08:18] LABS: ABG PCO2 84.2 MM HG (35-48)
[2020-07-28] MEDS: FUROSEMIDE 40 MG/4 ML VIAL IV SCH (09:57)
[2020-07-28] MEDS: PANTOPRAZOLE 40 MG TABLET PO SCH (09:59)
[2020-07-28] MEDS: AMINOPHYLLINE 500 MG in SODIUM CHLORIDE 0.9% 480 ML IV SCH ×2 (10:31→23:27)
[2020-07-28] MEDS: dilTIAZem Drip 125 MG/125 ML PREMIX IV SCH (13:21)
[2020-07-28] MEDS: ENOXAPARIN 40 MG/0.4 ML SYRINGE SUBCUT SCH (13:21)
[2020-07-28] MEDS: DILTIAZEM CD 120 MG CAPSULE PO SCH (20:50)
[2020-07-29] MEDS: methylPREDNISolone SOD SUC 40 MG/1 ML VIAL IV SCH ×3 (00:53→16:41)
[2020-07-29] MEDS: ALBUTEROL/IPRATROPIUM 3 ML NEB RESP TX SCH ×6 (00:58→23:50)
[2020-07-29] MEDS: PIPERACILLIN/TAZOBACTAM 3,375 MG in SODIUM CHLORIDE 0.9% 100 ML IV SCH ×3 (03:47→21:48)
[2020-07-29] MEDS: DORNASE ALFA 2.5 MG/2.5 ML VIAL RESP TX SCH ×2 (08:13→19:14)
[2020-07-29] MEDS: PANTOPRAZOLE 40 MG TABLET PO SCH (09:54)
[2020-07-29] MEDS: FUROSEMIDE 40 MG/4 ML VIAL IV SCH ×2 (10:15→16:37)
[2020-07-29] MEDS ORDERED: FUROSEMIDE 40 MG/4 ML VIAL ONE (14:21)
[2020-07-29] MEDS: ENOXAPARIN 40 MG/0.4 ML SYRINGE SUBCUT SCH (14:42)
[2020-07-29] MEDS ORDERED: METOPROLOL TARTRATE 5 MG/5 ML VIAL IV ONE (15:51)
[2020-07-29] MEDS: AMINOPHYLLINE 500 MG in SODIUM CHLORIDE 0.9% 480 ML IV SCH (20:00)
[2020-07-29] MEDS: DILTIAZEM CD 120 MG CAPSULE PO SCH (21:51)
[2020-07-30] MEDS: methylPREDNISolone SOD SUC 40 MG/1 ML VIAL IV SCH ×2 (00:54→08:04)
[2020-07-30] MEDS: ALBUTEROL/IPRATROPIUM 3 ML NEB RESP TX SCH ×5 (03:29→19:34)
[2020-07-30] MEDS: PIPERACILLIN/TAZOBACTAM 3,375 MG in SODIUM CHLORIDE 0.9% 100 ML IV SCH (04:36)
[2020-07-30 04:44] LABS: Basophils % 0.2 % (0.0-0.8); Hematocrit 41.2 VOL% (42.0-52.0); Lymphocytes # 0.4 10*3/uL (1.4-4.0); Lymphocytes % 3.8 % (21.2-54.2); Mean Corpuscular HGB Conc 31.6 GM/DL (32-36); Mean Corpuscular Volume 87.5 FL (87-102); Mean Platelet Volume 11.8 FL (9.6-12.0); Monocytes % 3.7 % (1.7-12.7); Neutrophils % 90.3 % (38.7-73.9); Platelet Count 183 T/CUMM (130-400); Red Blood Count 4.71 MC/CUMM (3.8-5.5); Red Cell Distribution Width 13.5 % (9.3-17.3); White Blood Count 9.8 T/CUMM (4-12)
[2020-07-30 05:05] LABS: Hypochromasia 1+; Lymphocytes 2 % (20-55); Microcytosis 1+; Ovalocytes Slight; Platelet Estimate Adequate; Segmented Neutrophils 93 % (50-85); Total Cells Counted 100
[2020-07-30 05:10] LABS: Calcium 9.2 MG/DL (8.5-10.1)
[2020-07-30] MEDS: DORNASE ALFA 2.5 MG/2.5 ML VIAL RESP TX SCH ×2 (07:20→19:34)
[2020-07-30] MEDS: FUROSEMIDE 40 MG/4 ML VIAL IV SCH (08:03)
[2020-07-30] MEDS ORDERED: predniSONE 20 MG TABLET PO SCH (09:00)
[2020-07-30] MEDS ORDERED: FUROSEMIDE 40 MG TABLET PO SCH (09:00)
[2020-07-30] MEDS ORDERED: THEOPHYLLINE ER (24 HR) 400 MG CAPSULE PO SCH (09:00)
[2020-07-30] MEDS ORDERED: AMOXICILLIN/CLAV 500 MG TABLET PO SCH (09:00)
[2020-07-30] MEDS ORDERED: acetaZOLAMIDE 250 MG TABLET PO SCH (09:00)
[2020-07-30] MEDS: POTASSIUM CHLORIDE 20 MEQ TABLET PO PRN ×3 (09:18→14:03)
[2020-07-30] MEDS: PANTOPRAZOLE 40 MG TABLET PO SCH (09:18)
[2020-07-30] MEDS: ENOXAPARIN 40 MG/0.4 ML SYRINGE SUBCUT SCH (13:51)
[2020-07-30 20:13] VITALS: BP 120/79
== END 2020-07-30 20:31 | disposition hospice, inpatient (51) | DRG 193 ==
LOC: EDBD → EDUNIT# → N.ED 09:42 → SUATTDRO 12:15 → N.EDINP 12:15 → N.TELEN 17:13
PROVIDERS: ADMIT Internal Medicine; ATTEND Internal Medicine

== ENCOUNTER 2020-08-06 04:32 | Observation (INO) ==
[2020-08-06 05:08] LABS: Basophils # 0.1 10*3/uL (0.0-0.2); Basophils % 0.4 % (0.0-0.8); Eosinophils # 0.3 10*3/uL (0.0-0.87); Eosinophils % 1.6 % (0.00-10.9); Hematocrit 40.2 VOL% (42.0-52.0); Hemoglobin 13.3 GM/DL (14.0-18.0); Immature Granulocytes % 3.9 %; Immature Granulocytes Absolute 0.64 #; Lymphocytes # 1.2 10*3/uL (1.4-4.0); Lymphocytes % 7.6 % (21.2-54.2); Mean Corpuscular HGB Conc 33.1 GM/DL (32-36); Mean Corpuscular Volume 83.4 FL (87-102); Mean Platelet Volume 12.4 FL (9.6-12.0); Monocytes % 9.5 % (1.7-12.7); Platelet Count 183 T/CUMM (130-400); Red Blood Count 4.82 MC/CUMM (3.8-5.5); Red Cell Distribution Width 14.2 % (9.3-17.3); White Blood Count 16.2 T/CUMM (4-12)
[2020-08-06 05:13] LABS: ABG Base Excess 14.1 MMOL/L (-2.5-2.5); ABG HCO3 38.1 MMOL/L (20-26); ABG Oxygen Saturation 99.9 % (95-100); ABG PCO2 55.4 MM HG (35-48); ABG PH 7.473 (7.35-7.45); ABG TCO2 35.4 MMOL/L (23-27); Allen Test Positive
[2020-08-06 05:15] LABS: INR 1.1; PT Patient Result 11.4 SECS (9.8-11.9)
[2020-08-06 05:28] LABS: Albumin 3.5 G/DL (3.4-5.0); Bilirubin,Total 0.9 MG/DL (0.2-1.0); Calcium 9.3 MG/DL (8.5-10.1); Osmolality,Calculated 257.5 MOS/KG (273-304); Total Protein 7.1 G/DL (6.4-8.3)
[2020-08-06 05:29] LABS: Hypochromasia 1+; Lymphocytes 13 % (20-55); Microcytosis 1+; Platelet Estimate Adequate; Segmented Neutrophils 77 % (50-85); Total Cells Counted 100
[2020-08-06] MEDS ORDERED: LEVOFLOXACIN INJ 500 MG in PREMIX 1 EACH IV STA (05:36)
[2020-08-06 05:52] LABS: Amorphous Crystals,Urine Occasional /HPF (Few); Bacteria,Urine Occasional /HPF (Few); Bilirubin,Urine Negative (Negative); Blood, Urine Negative (Negative); Glucose,Urine (UA) Negative (Negative); Hyaline Casts,Urine 9 /LPF (0-3); Ketones,Urine 5 mg/dL (Negative); Mucus,Urine Occasional /LPF (Occasional); Nitrite,Urine Negative (Negative); Protein,Urine Negative; RBC,Urine 4 /HPF (0-4); Squamous Epithelial Cell,Urine Occasional /HPF (0-10); Urine Appearance CLEAR (Clear); Urine Color Yellow (Yellow); Urine Specific Gravity 1.013 (1.001-1.035); WBC,Urine 2 /HPF (0-6)
[2020-08-06] MEDS: SODIUM CHLOR 0.9% KCL 40 MEQ 40 MEQ/1,000 ML BAG IV SCH ×2 (06:26→16:53)
[2020-08-06] MEDS ORDERED: BISACODYL 5 MG TABLET PO PRN (07:23)
[2020-08-06] MEDS ORDERED: GLUCAGON 1 MG VIAL IM PRN (07:23)
[2020-08-06] MEDS ORDERED: ACETAMINOPHEN 325 MG TABLET PO PRN (07:23)
[2020-08-06] MEDS ORDERED: hydrALAZINE 20 MG/1 ML VIAL IV PRN (07:23)
[2020-08-06] MEDS ORDERED: ONDANSETRON 4 MG/2 ML VIAL IV PRN (07:23)
[2020-08-06] MEDS ORDERED: diphenhydrAMINE CAP 25 MG CAPSULE PO PRN (07:23)
[2020-08-06] MEDS ORDERED: DEXTROSE 50% 25 GM/50 ML SYRINGE IV PRN (07:23)
[2020-08-06] MEDS ORDERED: SODIUM CHLORIDE 0.9% 1,000 ML IV SCH (07:30)
[2020-08-06] MEDS ORDERED: PANTOPRAZOLE 40 MG TABLET PO SCH (09:00)
[2020-08-06] MEDS: ENOXAPARIN 40 MG/0.4 ML SYRINGE SUBCUT SCH (09:18)
[2020-08-06] MEDS: INSULIN REGULAR 100 UNIT/ML SUBCUT SCH ×4 (09:54→20:53)
[2020-08-06] MEDS: ALBUTEROL/IPRATROPIUM 3 ML NEB RESP TX SCH ×2 (13:01→19:19)
[2020-08-06] MEDS ORDERED: POTASSIUM CHLORIDE 20 MEQ TABLET PO ONE (16:03)
[2020-08-06] MEDS: DESITIN 4OZ/NYSTATIN 15 GRAM MIXTURE PASTE TOP SCH ×2 (16:54→20:53)
[2020-08-07] MEDS: ALBUTEROL/IPRATROPIUM 3 ML NEB RESP TX SCH ×4 (01:00→19:15)
[2020-08-07] MEDS: SODIUM CHLOR 0.9% KCL 40 MEQ 40 MEQ/1,000 ML BAG IV SCH ×2 (03:25→13:13)
[2020-08-07 06:06] LABS: Albumin 2.5 G/DL (3.4-5.0); Basophils % 0.4 % (0.0-0.8); Bilirubin,Total 1.1 MG/DL (0.2-1.0); Calcium 8.3 MG/DL (8.5-10.1); Eosinophils # 0.2 10*3/uL (0.0-0.87); Eosinophils % 1.7 % (0.00-10.9); Immature Granulocytes % 3.1 %; Lymphocytes # 0.9 10*3/uL (1.4-4.0); Lymphocytes % 9.2 % (21.2-54.2); Mean Corpuscular HGB Conc 32.8 GM/DL (32-36); Mean Platelet Volume 12.6 FL (9.6-12.0); Monocytes % 12.1 % (1.7-12.7); Neutrophils % 73.5 % (38.7-73.9); Osmolality,Calculated 267.2 MOS/KG (273-304); Osmolality,Calculated 269.1 MOS/KG (273-304); Platelet Count 159 T/CUMM (130-400); Red Cell Distribution Width 14.5 % (9.3-17.3); Risk Ratio 3.83; Total Protein 5.9 G/DL (6.4-8.3); VLDL CHOLESTEROL 18.2 MG/DL
[2020-08-07 06:11] LABS: Red Blood Count 3.72 MC/CUMM (3.8-5.5); White Blood Count 9.7 T/CUMM (4-12)
[2020-08-07 06:12] LABS: Hemoglobin 10.5 GM/DL (14.0-18.0)
[2020-08-07] MEDS: INSULIN REGULAR 100 UNIT/ML SUBCUT SCH ×4 (08:01→22:08)
[2020-08-07] MEDS: DESITIN 4OZ/NYSTATIN 15 GRAM MIXTURE PASTE TOP SCH ×2 (08:58→21:32)
[2020-08-07] MEDS: ENOXAPARIN 40 MG/0.4 ML SYRINGE SUBCUT SCH (08:58)
[2020-08-07] MEDS ORDERED: TUBERCULIN SKIN TEST 0.1 ML SYRINGE INTRADERM ONE (12:00)
[2020-08-07] MEDS ORDERED: traZODone 50 MG TABLET PO PRN (20:15)
[2020-08-08] MEDS: ALBUTEROL/IPRATROPIUM 3 ML NEB RESP TX SCH ×2 (00:59→07:02)
[2020-08-08] MEDS: SODIUM CHLOR 0.9% KCL 40 MEQ 40 MEQ/1,000 ML BAG IV SCH (02:00)
[2020-08-08] MEDS: INSULIN REGULAR 100 UNIT/ML SUBCUT SCH (07:02)
[2020-08-08 07:03] VITALS: BP 134/71
[2020-08-08] MEDS: DESITIN 4OZ/NYSTATIN 15 GRAM MIXTURE PASTE TOP SCH (08:29)
[2020-08-08] MEDS: ENOXAPARIN 40 MG/0.4 ML SYRINGE SUBCUT SCH (08:29)
[2020-08-08] MEDS ORDERED: THEOPHYLLINE ER (24 HR) 400 MG CAPSULE PO SCH (09:00)
== END 2020-08-08 10:24 ==
LOC: EDUNIT# → EDBD → N.EDINP 04:32 → N.ED 04:32 → N.5E 09:13
PROVIDERS: ADMIT Internal Medicine; ATTEND Internal Medicine

== ENCOUNTER 2020-09-18 11:20 | Inpatient (IN) ==
[2020-09-18] MEDS ORDERED: ALBUTEROL 2.5 MG/3 ML NEB RESP TX STA (11:42)
[2020-09-18] MEDS ORDERED: methylPREDNISolone SOD SUC 125 MG/2 ML VIAL IV STA (11:49)
[2020-09-18] MEDS ORDERED: SODIUM CHLORIDE 0.9% 500 ML IV STA (12:15)
[2020-09-18] MEDS ORDERED: cefTRIAXone 1,000 MG in SODIUM CHLORIDE 0.9% 100 ML IV STA (12:46)
[2020-09-18] MEDS ORDERED: SODIUM CHLORIDE 0.9% 1,000 ML IV STA (12:54)
[2020-09-18 13:08] LABS: ABG Base Excess 6.2 MMOL/L (-2.5-2.5); ABG HCO3 29.9 MMOL/L (20-26); ABG Oxygen Saturation 91.3 % (95-100); ABG PCO2 35.4 MM HG (35-48); ABG PH 7.523 (7.35-7.45); ABG PO2 58.1 MM HG (80-95); ABG TCO2 25.6 MMOL/L (23-27)
[2020-09-18 13:14] LABS: Basophils # 0.1 10*3/uL (0.0-0.2); Basophils % 0.5 % (0.0-0.8); Eosinophils # 0.1 10*3/uL (0.0-0.87); Eosinophils % 0.8 % (0.00-10.9); Hematocrit 35.3 VOL% (42.0-52.0); Hemoglobin 12.5 GM/DL (14.0-18.0); Immature Granulocytes % 0.6 %; Immature Granulocytes Absolute 0.09 #; Lymphocytes # 0.4 10*3/uL (1.4-4.0); Lymphocytes % 2.3 % (21.2-54.2); Mean Corpuscular HGB Conc 35.4 GM/DL (32-36); Mean Corpuscular Volume 78.8 FL (87-102); Mean Platelet Volume 10.8 FL (9.6-12.0); Monocytes % 4.4 % (1.7-12.7); Neutrophils % 91.4 % (38.7-73.9); Platelet Count 189 T/CUMM (130-400); Red Blood Count 4.48 MC/CUMM (3.8-5.5); Red Cell Distribution Width 14.2 % (9.3-17.3)
[2020-09-18 13:50] LABS: Albumin 2.5 G/DL (3.4-5.0); Bilirubin,Total 0.9 MG/DL (0.2-1.0); Calcium 8.8 MG/DL (8.5-10.1); Osmolality,Calculated 251.8 MOS/KG (273-304); Total Protein 6.1 G/DL (6.4-8.3)
[2020-09-18 13:52] LABS: Potassium 1.6 MMOL/L (3.5-5.1)
[2020-09-18] MEDS ORDERED: POTASSIUM CHLORIDE RIDER 20 MEQ in PREMIX 1 EACH IV STA (13:54)
[2020-09-18] MEDS ORDERED: ONDANSETRON 4 MG/2 ML VIAL IV PRN (14:04)
[2020-09-18] MEDS ORDERED: ACETAMINOPHEN 325 MG TABLET PO PRN (14:04)
[2020-09-18] MEDS ORDERED: DEXTROSE 50% 25 GM/50 ML VIAL IV PRN (14:04)
[2020-09-18] MEDS ORDERED: GLUCAGON 1 MG VIAL IM PRN (14:04)
[2020-09-18] MEDS ORDERED: POTASSIUM CHLORIDE RIDER 100 ML IV ONE (14:12)
[2020-09-18] MEDS ORDERED: POTASSIUM CHLORIDE 20 MEQ TABLET PO STA (14:12)
[2020-09-18] MEDS: POTASSIUM CHLORIDE RIDER 10 MEQ in PREMIX 1 EACH IV SCH ×2 (14:15→18:06)
[2020-09-18] MEDS ORDERED: PIPERACILLIN/TAZOBACTAM 3,375 MG in SODIUM CHLORIDE 0.9% 100 ML IV SCH (14:30)
[2020-09-18] MEDS ORDERED: LEVOFLOXACIN INJ 750 MG in PREMIX 1 EACH IV SCH (14:30)
[2020-09-18] MEDS ORDERED: fentaNYL 50 MCG/HR PATCH TRANSDERM SCH (15:00)
[2020-09-18 15:02] LABS: Hypersegmented Neutrophil 1+; Lymphocytes 2 % (20-55); Segmented Neutrophils 97 % (50-85); Total Cells Counted 100
[2020-09-18] MEDS ORDERED: SCOPOLAMINE 1.5 MG PATCH TRANSDERM ONE (15:02)
[2020-09-18 15:03] LABS: Burr Cells 1+; Microcytosis 1+; Platelet Estimate Normal
[2020-09-18 15:04] LABS: Ovalocytes Few; Toxic Granulation 1+
[2020-09-18] MEDS: methylPREDNISolone SOD SUC 125 MG/2 ML VIAL IV SCH ×2 (15:11→22:50)
[2020-09-18] MEDS: LORazepam 2 MG/1 ML VIAL IV SCH ×3 (16:05→22:50)
[2020-09-18] MEDS ORDERED: INSULIN REGULAR 100 UNIT/ML SUBCUT SCH (16:30)
[2020-09-18] MEDS ORDERED: POTASSIUM CHLORIDE INJ 100 MEQ in SODIUM CHLORIDE 0.9% 1,000 ML IV SCH (17:00)
[2020-09-18] MEDS ORDERED: INFLUENZA VIRUS VACCINE 0.5 ML SYRINGE IM ONE (18:40)
[2020-09-18] MEDS ORDERED: BUDESONIDE 0.5 MG/2 ML NEB RESP TX SCH (19:00)
[2020-09-18] MEDS: ALBUTEROL/IPRATROPIUM 3 ML NEB RESP TX SCH (19:40)
[2020-09-18] MEDS: PANTOPRAZOLE 40 MG TABLET PO SCH (20:57)
[2020-09-18] MEDS: POTASSIUM CHLORIDE 20 MEQ TABLET PO SCH (20:57)
[2020-09-18] MEDS ORDERED: MONTELUKAST 10 MG TABLET PO SCH (21:00)
[2020-09-18] MEDS ORDERED: LORATADINE 10 MG TABLET PO SCH (21:00)
[2020-09-18] MEDS ORDERED: DILTIAZEM CD 120 MG CAPSULE PO SCH (21:00)
[2020-09-19] MEDS: ALBUTEROL/IPRATROPIUM 3 ML NEB RESP TX SCH (01:10)
[2020-09-19] MEDS ORDERED: POTASSIUM CHLORIDE INJ 40 MEQ in LACTATED RINGERS 1,000 ML IV SCH (03:00)
[2020-09-19] MEDS: LORazepam 2 MG/1 ML VIAL IV SCH ×6 (03:50→20:47)
[2020-09-19] MEDS ORDERED: POTASSIUM CHLORIDE 20 MEQ TABLET PO SCH (04:00)
[2020-09-19] MEDS ORDERED: LEVOTHYROXINE 25 MCG TABLET PO SCH (06:00)
[2020-09-19] MEDS: methylPREDNISolone SOD SUC 125 MG/2 ML VIAL IV SCH (06:41)
[2020-09-19] MEDS: MORPHINE 4 MG/1 ML VIAL IV PRN ×2 (06:43→13:59)
[2020-09-19] MEDS ORDERED: ALBUTEROL/IPRATROPIUM 3 ML NEB RESP TX ONE (07:11)
[2020-09-19] MEDS: PANTOPRAZOLE 40 MG TABLET PO SCH (07:19)
[2020-09-19] MEDS: POTASSIUM CHLORIDE 20 MEQ TABLET PO SCH (07:19)
[2020-09-19] MEDS ORDERED: predniSONE 5 MG TABLET PO SCH (08:00)
[2020-09-19] MEDS ORDERED: acetaZOLAMIDE 250 MG TABLET PO SCH (09:00)
[2020-09-19] MEDS ORDERED: THEOPHYLLINE ER (24 HR) 400 MG CAPSULE PO SCH (09:00)
[2020-09-20] MEDS: LORazepam 2 MG/1 ML VIAL IV SCH ×7 (01:20→21:43)
[2020-09-20] MEDS ORDERED: SKIN HEALING OINT (AQUAPHOR) 50 GM TUBE TOP PRN (11:16)
[2020-09-20] MEDS: DESITIN 4OZ/NYSTATIN 15 GRAM MIXTURE PASTE TOP SCH ×2 (13:04→21:41)
[2020-09-20 21:11] VITALS: BP 105/70
== END 2020-09-20 23:45 | disposition expired | DRG 951 ==
LOC: EDUNIT# → EDBD → N.EDINP 11:20 → N.ED 11:20 → N.EDINP 15:30 → N.4E 16:10 → N.5E 09-19 17:48
PROVIDERS: ADMIT Emergency Medicine; ATTEND Emergency Medicine